=== PATIENT | male | born 1990 | race Caucasian/White ===

== ENCOUNTER 2019-06-06 19:33 | Emergency (ER) | payer MEDICAID ==
[~2019-06-06] VITALS: Ht 162.6 cm; Wt 73.0 kg
[2019-06-06 19:36] VITALS: BP 128/61
== END 2019-06-06 21:02 | disposition home or self-care (01) ==
LOC: ED 20:56
DX: S61.212A Laceration without foreign body of right middle finger without damage to nail, initial encounter (principal); X58.XXXA Exposure to other specified factors, initial encounter; Y93.89 Activity, other specified; Y92.410 Unspecified street and highway as the place of occurrence of the external cause; Y99.8 Other external cause status
CPT/HCPCS: 12001; 99283

== ENCOUNTER 2019-11-06 20:14 | Emergency (ER) | payer MEDICAID ==
[~2019-11-06] VITALS: Ht 165.1 cm; Wt 85.0 kg
[2019-11-06 20:25] VITALS: BP 142/87
[2019-11-06] MEDS ORDERED: DEXAMETHASONE 4 MG TABLET PO ONE (21:00)
[2019-11-06 21:08] LABS: RAPID INFLUENZA A Negative (Negative); RAPID INFLUENZA B Negative (Negative)
[2019-11-06] MEDS ORDERED: DEXAMETHASONE 4 MG TABLET ONE (21:20)
--- NOTE | 2019-11-06 21:31 | NUR ---
RECHECK. MEDS PER MAR.
== END 2019-11-06 21:59 | disposition home or self-care (01) ==
LOC: ED 21:50
DX: B34.9 Viral infection, unspecified (principal)
CPT/HCPCS: 71046; 87081; 87400; 87880; 99284